=== PATIENT | male | born 1980 | race Caucasian/White ===

== ENCOUNTER 2021-05-16 06:54 | Day surgery (SDC) | payer BC ==
[2021-05-15 10:44] VITALS: BP 117/72
[2021-05-16] VITALS (17 sets, daily range): BP systolic 98–134; BP diastolic 55–80
[~2021-05-16] VITALS: Ht 185.4 cm; Wt 101.3 kg
[2021-05-16] MEDS: CEFAZOLIN SODIUM 1 GM VIAL IVP SCH ×2 (06:00→08:05)
[~2021-05-16 06:54] MED LIST: TERB250T89 PO
[2021-05-16] MEDS ORDERED: LACTATED RINGERS 1000ML 1,000 ML IV ONE (07:04)
[2021-05-16] MEDS ORDERED: DEXAMETHASONE SOD PHOSPHATE 10MG/ML 1ML VIAL ONE ×2 (07:27→07:30)
[2021-05-16] MEDS ORDERED: SUCCINYLCHOLINE 200MG/10ML SYR ONE (07:27)
[2021-05-16] MEDS ORDERED: LIDOCAINE PF 100MG/5ML (2%) SYRINGE 5ML ONE ×2 (07:27→07:30)
[2021-05-16] MEDS ORDERED: MIDAZOLAM HCL 1 MG/ML 2ML VIAL ONE (07:28)
[2021-05-16] MEDS ORDERED: ROCURONIUM 10MG/1ML SYR 10 MG/ML ML ONE (07:28)
[2021-05-16] MEDS ORDERED: GLYCOPYRROLATE 1 MG/5 ML SYRINGE ONE (07:28)
[2021-05-16] MEDS ORDERED: PROPOFOL 10 MG/ML 20ML VIAL IV ONE ×2 (07:28→08:06)
[2021-05-16] MEDS ORDERED: NEOSTIGMINE 5MG/5ML SYR IV ONE (07:28)
[2021-05-16] MEDS ORDERED: ONDANSETRON 4MG INJ ONE (07:28)
[2021-05-16] MEDS ORDERED: FENTANYL CITRATE PF 50 MCG/1 ML 2ML VIAL ONE (07:29)
[2021-05-16] MEDS ORDERED: KETOROLAC 30MG VIAL (30MG/ML) ONE (07:30)
[2021-05-16] MEDS ORDERED: BUPIVACAINE/PF 0.25% 30ML VIAL IJ ONE (07:59)
[2021-05-16] MEDS ORDERED: BACITRACIN 28.4 GM OINT TP ONE (07:59)
== END 2021-05-16 11:20 | disposition home or self-care (01) ==
LOC: DAH 06:54
PROVIDERS: ATTEND Urology
DX: Z30.2 Encounter for sterilization (principal); Z20.822 Contact with and (suspected) exposure to COVID-19; N47.1 Phimosis; Z98.890 Other specified postprocedural states
CPT/HCPCS: 54161; 55250; 87635; A4213; A4215; A4221; A4222; A4223; A4510; A4600; A4663; A6260; C9803; J0330; J0690; J1100 ×2; J1885; J2001 ×2; J2250; J2405; J2704 ×2; J2710; J3010; J3490 ×2; J7120